=== PATIENT | female | born 1955 | race Caucasian/White ===

== ENCOUNTER → 2023-11-06 13:55 | Outpatient (REF) | payer MEDICARE, OTHER, SELFPAY | LOC: RAD 13:55 | PROVIDERS: ATTENDING PHYSICIAN Student in an Organized Health Care Education/Training Program | DX: Z13.820 Encounter for screening for osteoporosis (principal); M81.0 Age-related osteoporosis without current pathological fracture | CPT/HCPCS: 77080 ==

== ENCOUNTER → 2024-07-15 18:48 | Outpatient (REF) | payer MEDICARE, OTHER, SELFPAY | LOC: WDC 18:48 | PROVIDERS: ATTENDING PHYSICIAN Student in an Organized Health Care Education/Training Program | DX: Z12.31 Encounter for screening mammogram for malignant neoplasm of breast (principal) | CPT/HCPCS: 77063; 77067 ==

== ENCOUNTER → 2024-09-06 06:26 | Day surgery (SDC) | payer MEDICARE, OTHER, SELFPAY | LOC: GI 06:26 | PROVIDERS: ATTENDING PHYSICIAN Student in an Organized Health Care Education/Training Program | PROC: 0DJD8ZZ Inspection of Lower Intestinal Tract, Via Natural or Artificial Opening Endoscopic (ICD-10-PCS; 2024-09-06) | DX: Z12.11 Encounter for screening for malignant neoplasm of colon (principal); Z86.0101 Personal history of adenomatous and serrated colon polyps; K64.0 First degree hemorrhoids | CPT/HCPCS: G0105 ==

== ENCOUNTER → 2024-11-18 07:41 | Outpatient (REF) | payer MEDICARE, OTHER, SELFPAY ==
[2024-11-18 09:41] LABS: % Basophils 0.9 % (0-2); % Immature Granulocytes 0.2 % (0-0.5); % Monocytes 10.6 % (1.7-9.3); % Neutrophils 38.3 % (42.2-75.2); Absolute Basophils 0.1 10^3/uL (0-0.2); Absolute Eosinophils 0.2 10^3/uL (0-0.7); Absolute Lymphocytes 2.7 10^3/uL (1.2-3.4); Absolute Monocytes 0.6 10^3/uL (0.1-0.6); Absolute Neutrophils 2.2 10^3/uL (1.4-6.5); Hematocrit 42.9 % (37.0-47.0); Hemoglobin 13.6 g/dL (12.0-16.0); Mean Corp Hgb Conc. 31.7 g/dL (33.0-37.0); Mean Corpuscular Hgb 30.7 pg (27.0-31.0); Mean Corpuscular Volume 96.8 fL (81.0-99.0); Mean Platelet Volume 11.1 fL (7.4-10.4); Nucleated Red Blood Cells % 0 %; Platelet Count 203 10^3/uL (130-400); Red Blood Cell Count 4.43 10^6/uL (4.20-5.40); Red Cell Dist. Width 11.8 % (11.5-14.5); White Blood Cell Count 5.8 10^3/uL (4.8-10.8)
[2024-11-18 10:02] LABS: Blood Urea Nitrogen 15 mg/dl (7-17); Calcium 9.1 mg/dl (8.4-10.2); Carbon Dioxide 34 mmol/L (22-30); Chloride 104 mmol/L (98-107); Glucose 100 mg/dl (70-99); Potassium 5.2 mmol/L (3.5-5.1); Sodium 138 mmol/L (135-145); eGFR > 60.00
== END ==
LOC: REG 07:41
PROVIDERS: ATTENDING PHYSICIAN Orthopaedic Surgery
DX: Z01.818 Encounter for other preprocedural examination (principal)
CPT/HCPCS: 36415; 80048; 85025; 93005

== ENCOUNTER 2024-12-31 18:38 | Inpatient (IN) | payer MEDICARE, OTHER, SELFPAY ==
[2024-12-31] VITALS (7 sets, daily range): BP systolic 115–155; BP diastolic 48–69
[2024-12-31 14:05] LABS: % Basophils 0.5 % (0-2); % Eosinophils 0.2 % (0-6); % Immature Granulocytes 0.7 % (0-0.5); % Lymphocytes 16.3 % (20.5-51.1); % Monocytes 6.1 % (1.7-9.3); % Neutrophils 76.2 % (42.2-75.2); Absolute Basophils 0.1 10^3/uL (0-0.2); Absolute Immature Granulocytes 0.1 10^3/uL (0-0.05); Absolute Lymphocytes 2.5 10^3/uL (1.2-3.4); Absolute Monocytes 0.9 10^3/uL (0.1-0.6); Absolute Neutrophils 11.4 10^3/uL (1.4-6.5); Hematocrit 26.5 % (37.0-47.0); Hemoglobin 8.4 g/dL (12.0-16.0); Mean Corp Hgb Conc. 31.7 g/dL (33.0-37.0); Mean Corpuscular Hgb 30.2 pg (27.0-31.0); Mean Corpuscular Volume 95.3 fL (81.0-99.0); Nucleated Red Blood Cells % 0 %; Platelet Count 337 10^3/uL (130-400); Red Blood Cell Count 2.78 10^6/uL (4.20-5.40); Red Cell Dist. Width 11.9 % (11.5-14.5)
[2024-12-31 14:40] LABS: ALT (SGPT) 21 U/L (0-35); AST (SGOT) 22 U/L (14-36); Albumin 3.3 g/dl (3.5-5.0); Alkaline Phosphatase 67 U/L (38-126); Blood Urea Nitrogen 49 mg/dl (7-17); Calcium 9.5 mg/dl (8.4-10.2); Carbon Dioxide 29 mmol/L (22-30); Chloride 103 mmol/L (98-107); Glucose 119 mg/dl (70-99); Lipase 146 U/L (23-300); Potassium 4.6 mmol/L (3.5-5.1); Sodium 137 mmol/L (135-145); Total Bilirubin 0.5 mg/dl (0.2-1.3); Total Protein 5.8 g/dl (6.3-8.2); eGFR > 60.00
--- NOTE | 2024-12-31 17:40 | ED.GENMED ---
History of Present Illness
General
Chief Complaint: Abdominal Pain
Source: patient
Exam Limitations: none
Time Seen by Provider: 12/31/24 17:15
Nursing documentation reviewed up to this point in time: agreed with
History of Present Illness
History of Present Illness:
69 yo female with h/o HTN, HLD, Hypothyroid, R knee replacement Dr. De Jesus 12/15/24, cyndie out 12/28, had some swelling in the leg so put on Prednisone with improvement. Was taking Celebrex 2 caps daily, Ibuprofen 400 mg TID and Tylenol for pain.
Noted black stools and stomach upset 10 days ago. Got worse and felt lightheaded twice today so came here for eval.
Denies CP, SOB.
Past History
Past History
ED Past Medical History: HTN, Hypercholesterolemia and Hypothyroidism
ED Past Surgical History: Orthopedic (R knee replaced 12/15/24), Tonsilectomy and Other (Thyroidectomy)
Social History
Tobacco: Non-smoker
Alcohol: Occasional
Personal: Single
Living: alone
Employment: Retired
Review of Systems
Review of Systems
Allergies reviewed?: Yes
All Other Systems: ROS reviewed and negative except as documented in HPI and ROS
Constitutional: Denies fever or chills
Cardiac: Denies chest pain, diaphoresis, palpitations or syncope
ABD/GI: Reports abdominal pain and black stools; Denies nausea, vomiting, diarrhea or anorexia
: Denies dysuria, frequency or difficulty voiding
Musculoskeletal: Reports other (Right knee healing well.)
Skin: Reports other (R knee incision healing well, steri strips in place)
Neurological: Reports other (felt lightheaded twice earlier today); Denies dizzy, headache, weakness or numbness
Phy Exam
Physical Exam
Physical Exam:
GENERAL: No acute distress. A&Ox3.
CONSTITUTIONAL: Afebrile.
EYES: clear, conjunctivae normal
ENMT: moist mucus membranes, Pharynx nl
RESPIRATORY: Regular respirations, nonlabored, lungs clear.
CARDIOVASCULAR: Regular rate and rhythm, no murmurs, no rubs.
GI: Soft, mild epigastric tenderness, normal BS
Rectal: no stool in rectal vault, gloved finger mucus heme positive
MUSCULOSKELETAL: Moves with ease. Well perfused.
SKIN: Warm, dry, pink
PSYCH: Normal mood and affect. Well kept, interactive and appropriate
NEUROLOGIC: Awake, alert and oriented. No focal neurological deficits
Course
Orders/Labs/Results
Orders:
Orders
12/31/24 13:56
Complete Blood Count/With Diff Urgent
Comprehensive Metabolic Panel Urgent
Lipase Urgent
12/31/24 17:57
IV Insert/Care/Rem.- Treatment PRN
Pantoprazole [Protonix IV] 80 mg IV NOW STA
12/31/24 18:07
GASTROINTESTINAL CONSULT Routine
Consulting Provider: Sunshine Malik
Was physician already notified: Yes
Reason for consult: GIB
12/31/24 18:08
Type And Crossmatch [Type+Screen] Urgent
PTT Urgent
Prothrombin Time Urgent
12/31/24 18:15
Pantoprazole 80 mg/100 ml Nss [Protonix] 80 mg in 100 ml IV Q10H
12/31/24 18:25
Admit/Transfer Patient As Directed
Co-Sign Provider:
Level of Care: Inpatient admission
Assign to:: Telemetry
Physician / Group: Hospitalist
Diagnosis: GIB
Reason for Telemetry: Syncope
Date to Stop Telemetry: 01/02/25
Time to Stop Telemetry: 11:00
Reason for Hospitalization: GIB
Expected length of stay greater than two midnights?: Yes
ELOS- Estimated Length of Stay in days: 2
I certify the patient meets the requirements for IP care: Yes
12/31/24 18:27
Code Status As Directed
Resuscitation Status: Full Code
PRN Pain Medication Management As Directed
May give lesser potent ordered pain med per pt: Yes
preference::
Protocol:: Medication orders for pain may be administered in a
manner that supports deferring to patient preference
when the pt is:
- Requesting an ordered lesser potent pain medication.
Least to most potent pain medications are defined
as: acetaminophen < NSAID < tramadol < opioids
(morphine, oxycodone, hydromorphone).
- Requesting a lesser dose of the same medication IF
ORDERED.
- Requesting a less intrusive route of administration
if both routes are prescribed by the provider (PO <
IV).
12/31/24 18:43
ABO2 Urgent
BBK Wristband Number:
Associate notified that ABO2 has been ordered: [id number]
Date: 12/31/24
Time: 18:32
S[employer] ID: [id number]
COVID-19 Antigen Stat
Source: Nasal Swab
H&H Q8H
Influenza A+B Rapid Molecular Stat
ALYSSIA Source: Nasal Swab
Specimen Description:
01/01/25 02:15
H&H Q8H
01/01/25 10:15
H&H Q8H
01/02/25 11:00
DC Protocol for Telemetry ONCE
Abnormal Lab Results
12/31/24 12/31/24
13:56 18:08
WBC 15.0 H 10^3/uL
(4.8-10.8)
RBC 2.78 L 10^6/uL
(4.20-5.40)
Hgb 8.4 L g/dL
(12.0-16.0)
Hct 26.5 L %
(37.0-47.0)
MCHC 31.7 L g/dL
(33.0-37.0)
Abs Immat Gran (auto) 0.1 H 10^3/uL
(0-0.05)
Absolute Neuts (auto) 11.4 H 10^3/uL
(1.4-6.5)
Absolute Monos (auto) 0.9 H 10^3/uL
(0.1-0.6)
Immature Gran % 0.7 H %
(0-0.5)
Neutrophils % 76.2 H %
(42.2-75.2)
Lymphocytes % 16.3 L %
(20.5-51.1)
PT 15.4 H Sec
(11.4-14.6)
APTT 23.0 L Sec
(23.4-35.0)
BUN 49 H mg/dl
(7-17)
Glucose 119 H mg/dl
(70-99)
Total Protein 5.8 L g/dl
(6.3-8.2)
Albumin 3.3 L g/dl
(3.5-5.0)
12/31/24 13:56
12/31/24 13:56
Vital Signs
Initial and Last Documented VS:
Initial Vital Signs
Temp Pulse Resp BP Pulse Ox
98.4 F 81 16 117/56 98
12/31/24 13:44 12/31/24 13:44 12/31/24 13:44 12/31/24 13:44 12/31/24 13:44
Last Documented Vital Signs
Temp Pulse Resp BP Pulse Ox
98.4 F 78 19 152/62 96
12/31/24 13:44 12/31/24 19:30 12/31/24 19:30 12/31/24 19:00 12/31/24 19:30
MDM/Problems Addressed
Differential Diagnosis Includes:
GI bleed from NSAIDs, PUD
MDM/Problems Addressed:
69 yo female with h/o HTN, HLD, Hypothyroid, R knee replacement Dr. De Jesus 12/15/24, cyndie out 12/28, had some swelling in the leg so put on Prednisone with improvement. Was taking Celebrex 2 caps daily, Ibuprofen 400 mg TID and Tylenol for pain.
Noted black stools and stomach upset 10 days ago. Got worse and felt lightheaded twice today so came here for eval.
Denies CP, SOB.
5:00 p.m.
CBC Hgb 8.4 (was 13.6 11/18/24)
CMP: BUN 49
Lipase normal
5:50 p.m.
Blood consent signed and with chart,
Pt stable.
Hospitalist notified of admission.
*Critical Care Note
Total Time (30-74mins, 75-104mins- exclusive of procedures): Not Applicable
ED Attending Note
-
Portions of this chart may have been created with voice recognition software.� Occasional wrong word or��sound alike� substitutions may have occurred due to the inherent limitations of voice recognition software.
Discharge Plan
Departure
Patient Disposition: Admit
Date of Disposition: 12/31/24
Time of Disposition: 17:56
Admit to: Med/Surg
Presentation/result/management discussed w/ accepting MD/DO: Hospitalist
Condition: Fair
Discharge Problem:
Acute GI bleeding
Interventions
Interventions:
*Risk Screen - Suicide Last Done: 12/31/24 13:44
*General Assessment Last Done: 12/31/24 18:42
*Neglect/Abuse Screening Last Done: 12/31/24 13:44
*ED- Fall Risk Assessment Last Done: 12/31/24 18:42
*ED COVID-19 Vaccine History Last Done: 12/31/24 18:42
BY-Vyvinj-Yrnzzvyaks Assessment Last Done: 12/31/24 18:42
[2024-12-31 18:27] LABS: INR 1.19; PT 15.4 Sec (11.4-14.6)
--- NOTE | 2024-12-31 18:32 | HPS.HSE ---
Family Physician
-
Family Physician: Inez Levine PA-C
Chief Complaint
-
black stool
History of Present Illness
69yo F with PMHx of DJD, HLD, reportedly hypothyroidism, recent R knee replacement on 01/15/25 came with 1 week of dark stools and epigastic pain. On the day of admission almost passed out that prompted her to come to ED. She also had signifcant
maroon colored stool on the day of admisison. Was taking Advil, celebrex and Asa 325mg for DVT ppx over past eweeks, as well as Rx prednisone few days ago for her postOP swelling
Leg swelling and bruising gradually resolving after her surgery and did not get worse for past week.
Found FOBT positive dark stool in ED and Anemia, hemodynamically stable without hypotension and tachycardia
Medical History
Past Medical History
Past Medical History: Reports Other
Additional Past Medical History:
See HPI
Past Surgical History: Reports Other
Additional Past Surgical History:
See HPI
Social History
Tobacco: Non-smoker
Alcohol: Occasional
Drug: None
Family History
Family History: Other (strokes)
Allergies / Home Medications
Allergies reflects when Allergies were last updated in [employer].
Home Medications with original date entered in [employer]
Allergy/Medication List:
Allergies
Allergy/AdvReac Type Severity Reaction Status Date / Time
codeine Allergy Unknown Verified 12/31/24 13:47
Penicillins Allergy Unknown Verified 12/31/24 13:47
Home Medications - Not updated at the time of admisison
tramadol 50 mg tablet 50 mg PO Q6HPRN PRN Pain #15 tabs 09/10/15
Review of Systems
-
History Source: Patient
A 12 point ROS was completed and negative except as noted: Yes
Physical Exam
Vital Signs
Vital Signs
Temp Pulse Resp BP Pulse Ox
98.4 F 81 16 117/56 98
12/31/24 13:44 12/31/24 13:44 12/31/24 13:44 12/31/24 13:44 12/31/24 13:44
Physical Exam
General: Well Developed, Well Nourished and No Apparent Distress
HEENT: NormoCephalic, Anicteric and Moist mucous membranes
Respiratory: Clear; No Wheezes or Rhonchi
Cardiac: Regular Rhythm; No Tachycardia or Murmur
Rectal: Black and Hem Positive
Genito-urinary: No costovertebral tender
Musculoskeletal: No Clubbing, No Cyanosis and Other (RLE with residular bruising extending over medial leg to the groin, well healing scar)
Skin: Warm; No Rash or Jaundice
Neuro: Awake, Alert, Oriented and AO x 3
Psych: Calm
Laboratory Results
-
12/31/24 13:56
Laboratory Results
PT 15.4 Sec (11.4-14.6) H 12/31/24 18:08
INR 1.19 12/31/24 18:08
APTT 23.0 Sec (23.4-35.0) L 12/31/24 18:08
Total Bilirubin 0.5 mg/dl (0.2-1.3) 12/31/24 13:56
AST 22 U/L (14-36) 12/31/24 13:56
ALT 21 U/L (0-35) 12/31/24 13:56
Alkaline Phosphatase 67 U/L (38-126) 12/31/24 13:56
Lipase 146 U/L (23-300) 12/31/24 13:56
Data Reviewed
-
Lab Data: Labs Reviewed by me
Impression/Plan
-
A/P:
#Acute blood loss anemia 2/2 GIB
PPI drip
two large bore IV, follow serial H&H, patient signed blood transfusion consent in ED
Transfuse if further drop
NPO
GI consult
hold antiplatelets, anticoagulation and NSAIDs
follow orthostatics
if significant symptoms appear - CTA abd/pelvis
#Hypothyroidism
#HLD
#EssentiaL HTN
cont home meds
#leukocytosis
possibly stress induced
check UA, chest XR, covid-19, influenza and follow CBC
DVT ppx SCDs
Full code - discussed in details with patient
I have spent at least 78min reviewing chart, test results, communication with consukltants and providing direct patient care
[2024-12-31] MEDS: PROTONIX IV 80 MG IV (18:53)
[2024-12-31] MEDS: PROTONIX 100 IV (18:53)
[2024-12-31 18:57] LABS: Hematocrit 23.6 % (37.0-47.0)
[2024-12-31 19:19] LABS: COVID-19 Antigen Negative (Negative)
--- NOTE | 2024-12-31 22:00 | PTCARENOTE ---
Patient arrived from ED, with IV protonix running at 8 mg/hr. VSS. NSR with PVCs, on telemetry, box # 34. Patient denies abdominal pain. x 1 assist with a straight cane. WBAT to RLE post right total knee replacement, 12/15/24. Right knee incision CDI
with steri strips. Trace edema noted upon assessment. IV team called to place a second IV per orders. Skin check completed and documented. UA completed. Home medications sent to pharmacy, including PO Lorazepam. Patient oriented to room. Bed in
lowest position. Call orr and personal belongings within reach.
[2024-12-31] MEDS: D5/0.45%NACL 1000 IV (22:33)
[2025-01-01] VITALS (13 sets, daily range): BP systolic 116–143; BP diastolic 48–80; BMI 30.5
[2025-01-01 01:43] LABS: Urine Albumin Negative (Neg - Trace); Urine Bilirubin Negative (Negative); Urine Character Clear (Clear); Urine Color Yellow; Urine Glucose Negative (Negative); Urine Ketone Negative (Negative); Urine Leukocyte Negative (Negative); Urine Nitrite Negative (Negative); Urine Occult Blood Negative (Negative); Urine Specific Gravity 1.015 (<1.030); Urine Urobilinogen Negative (Neg - 1+)
[2025-01-01 02:21] LABS: Hematocrit 21.8 % (37.0-47.0); Hemoglobin 7.1 g/dL (12.0-16.0)
[2025-01-01 04:41] LABS: Iron 105 ug/dl (37-170)
[2025-01-01 04:50] LABS: Percent Saturation 31 % (20-50); Total Iron Binding Capacity 336 ug/dl (265-497)
[2025-01-01 05:17] LABS: Ferritin 84.5 ng/ml (11.1-264.0)
[2025-01-01 05:31] LABS: Vitamin B12 470 pg/ml (239-931)
--- NOTE | 2025-01-01 05:48 | PTCARENOTE ---
Hgb 7.1. Provider notified. x 1 unit PRBC ordered. Administration of PRBC started.
[2025-01-01] MEDS: PROTONIX 100 IV ×2 (06:03→16:39)
--- NOTE | 2025-01-01 06:20 | PTCARENOTE ---
IV fluids on hold due to lack of access.
--- NOTE | 2025-01-01 08:28 | CON.GI ---
Consultation
-
Date/Time Consultation Requested: 12/31/24 1800
Date/Time Consultation Performed: 01/01/25 0800
Requesting Provider: Dr. Napoles
Performing Provider: Dr. Malik / Poornima Tyler PA-C
Reason for Consultation: black stools, lightheaded, abdominal pain
Medical History
Chief Complaint / HPI
Chief Complaint: black stools, abdominal pain
History of Present Illness:
This is a 69 year old female with a past medical history of hyperlipidemia, hypothyroidism, arthritis and colon polyps who underwent recent R knee replacement on 12/15/24 who presented to the ER with complaints of black stools for over a week, with
epigastric pain and lightheadedness. She admitted to heavy NSAID use post-op, taking Celebrex and Advil in addition to multiple course of prednisone as she had post-op swelling of her knee. Hemoglobin upon arrival in the ED was 8.4 with BUN of 49.
Hgb did drop (down to 7.1 this morning and she received 1 unit PRBCs). Patient has remained hemodynamically stable. She has never had an endoscopy. She recently had a colonoscopy with Dr. Bruno and has a history of colon polyps as well as a family
history of colon cancer (father).
Past Medical History
Past Medical History: Other (hyperlipidemia, hypothyroidism, arthritis and colon polyps)
Past Surgical History: Other (R knee replacement on 12/15/24, tonsillectomy, thyroidectomy)
Social History
Tobacco: Non-Smoker
Alcohol: Daily (1 glass of wine/day)
Drug: Marijuana (occasional)
Family History
Family History: Other (father had colon cancer)
Allergies / Home Medications
Allergy/AdvReac Type Severity Reaction Status Date / Time
codeine Allergy Unknown Verified 12/31/24 13:47
Penicillins Allergy Unknown Verified 12/31/24 13:47
�Medication �Instructions �Recorded
aspirin 325 mg tablet 325 mg PO DAILY 12/31/24
ibuprofen 200 mg tablet (Advil) 400 mg PO Q6HPRN PRN mild pain 12/31/24
levothyroxine 150 mcg tablet 150 mcg PO DAILY 12/31/24
lisinopril 5 mg tablet 5 mg PO DAILY 12/31/24
lorazepam 0.5 mg tablet 0.25 mg PO HSPRN PRN sleep/anxiety 12/31/24
methylprednisolone 4 mg tablets in 0 mg PO PER PKG DIR 12/31/24
a dose pack
metoprolol succinate 100 mg 200 mg PO HS 12/31/24
tablet,extended release 24 hr
rosuvastatin 5 mg tablet 5 mg PO HS 12/31/24
Review of Systems
-
History Source: Patient
All other systems: A 12 pt ROS was Negative except as stated above in HPI
Vital Signs
Temp Pulse Resp BP Pulse Ox
98.4 F 70 15 125/51 100
01/01/25 07:49 01/01/25 07:49 01/01/25 07:49 01/01/25 07:49 01/01/25 07:49
Physical Exam
Exam
General: Well Developed, Well Nourished and No Apparent Distress
Respiratory: Clear
Cardiac: Regular Rhythm
GI: Soft, Non Tender, Non Distended and Normal Bowel Sounds
Rectal: Other (black, heme positive per ER exam)
Skin: Warm
Neuro: Awake, Alert and Oriented
Psych: Calm
Results
WBC 15.0 10^3/uL (4.8-10.8) H 12/31/24 13:56
Hgb 7.1 g/dL (12.0-16.0) L 01/01/25 02:13
Hct 21.8 % (37.0-47.0) L 01/01/25 02:13
MCV 95.3 fL (81.0-99.0) 12/31/24 13:56
Plt Count 337 10^3/uL (130-400) 12/31/24 13:56
Absolute Neuts (auto) 11.4 10^3/uL (1.4-6.5) H 12/31/24 13:56
PT 15.4 Sec (11.4-14.6) H 12/31/24 18:08
INR 1.19 12/31/24 18:08
APTT 23.0 Sec (23.4-35.0) L 12/31/24 18:08
Sodium 137 mmol/L (135-145) 12/31/24 13:56
Potassium 4.6 mmol/L (3.5-5.1) 12/31/24 13:56
Chloride 103 mmol/L (98-107) 12/31/24 13:56
Carbon Dioxide 29 mmol/L (22-30) 12/31/24 13:56
BUN 49 mg/dl (7-17) H 12/31/24 13:56
Creatinine 0.9 mg/dL (0.6-1.0) 12/31/24 13:56
Calcium 9.5 mg/dl (8.4-10.2) 12/31/24 13:56
Total Bilirubin 0.5 mg/dl (0.2-1.3) 12/31/24 13:56
AST 22 U/L (14-36) 12/31/24 13:56
ALT 21 U/L (0-35) 12/31/24 13:56
Alkaline Phosphatase 67 U/L (38-126) 12/31/24 13:56
Lipase 146 U/L (23-300) 12/31/24 13:56
Diagnostic Image Results:
Prior GI Procedures:
EGD: never
Colonoscopy: 09/06/2024 (Dr Bruno): internal hemorrhoids, otherwise normal
Assessment / Plan
-
69 year old female who underwent recent R knee replacement on 12/15/24 who presented to the ER with complaints of black stools for over a week, with epigastric pain and lightheadedness. She admitted to heavy NSAID use post-op, taking Celebrex and
Advil in addition to multiple course of prednisone as she had post-op swelling of her knee. Hemoglobin upon arrival in the ED was 8.4 with BUN of 49. Hgb did drop (down to 7.1 this morning and she received 1 unit PRBCs). Patient has remained
hemodynamically stable.
IMPRESSION / PLAN:
Melena, acute blood loss anemia
- etiology likely secondary to NSAID-induced ulcer/gastritis
- continue PPI IV
- Hgb dropped from 8.4 on admission to 7.1, s/p transfusion 1 unit PRBCs
- continue to trend Hgb
- plan for endoscopy (to discuss timing with Dr. Malik)
-
-
Thank you for consultation and allowing me to participate in the patient's care. Please call the inventory control assistant GI physician during the after hours with any questions or concerns.
--- NOTE | 2025-01-01 09:15 | W.PN.HOSP.TC ---
Today's Communication/Plan
-
pending EGD
transfuse and follow HGB
cont PPI drip
Assessment / Plan
Assessment / Plan
69yo F with PMHx of DJD, HLD, reportedly hypothyroidism, recent R knee replacement on 01/15/25 came with 1 week of dark stools and epigastic pain. On the day of admission almost passed out that prompted her to come to ED. Managed for GIB. s/p 1 unit
PRBC on 01/01/25
A/P:
#Acute blood loss anemia 2/2 GIB
PPI drip
two large bore IV, follow serial H&H, patient signed blood transfusion consent in ED
Transfuse if further drop
NPO
GI consult
hold antiplatelets, anticoagulation and NSAIDs
follow orthostatics
if significant symptoms appear - CTA abd/pelvis
#Hypothyroidism
#HLD
#EssentiaL HTN
cont home meds
#leukocytosis
possibly stress induced vs steroids (recently prescribed)
check UA, chest XR, covid-19, influenza and follow CBC
DVT ppx SCDs
Full code - discussed in details with patient
I have spent at least 78min reviewing chart, test results, communication with consukltants and providing direct patient care
Anticipated Discharge: > 48 hours
Subjective/Interval History
-
Date of Service: January 01, 2025
Objective Data
-
Labs:
Laboratory Results
01/01/25 01/01/25 01/01/25
02:13 07:22 10:15
WBC Pending
Hgb 7.1 L Pending Pending
Hct 21.8 L Pending Pending
Plt Count Pending
Vital Signs:
Vital Signs
Temp Pulse Resp BP Pulse Ox
98.5 F 75 16 128/67 97
01/01/25 09:02 01/01/25 09:02 01/01/25 09:02 01/01/25 09:02 01/01/25 09:02
I&O
12/31/24 01/01/25 01/02/25
06:59 06:59 06:59
Intake Total 550 / 800 250 / 250
Output Total 500 / 500
Balance 50 / 300 250 / 250
Review of Systems
-
History Source: Patient
All other systems: Reviewed and negative
Physical Exam
-
General: No Apparent Distress
HEENT: Normocephalic
Respiratory: Clear to Auscultation
Cardiac: Regular Rhythm
GI: Soft, Nontender and Nondistended
Musculoskeletal: No Clubbing, No Cyanosis and No Edema
Neuro: Awake, Alert, Oriented and AO x 3
Psych: Calm
[2025-01-01 09:48] LABS: Hematocrit 23.7 % (37.0-47.0); Hemoglobin 7.8 g/dL (12.0-16.0); Mean Corp Hgb Conc. 32.9 g/dL (33.0-37.0); Mean Corpuscular Hgb 30.6 pg (27.0-31.0); Mean Corpuscular Volume 92.9 fL (81.0-99.0); Mean Platelet Volume 10.5 fL (7.4-10.4); Platelet Count 260 10^3/uL (130-400); Red Blood Cell Count 2.55 10^6/uL (4.20-5.40); Red Cell Dist. Width 13.4 % (11.5-14.5); White Blood Cell Count 11.6 10^3/uL (4.8-10.8)
[2025-01-01 13:06] LABS: Hematocrit 25.3 % (37.0-47.0); Hemoglobin 8.6 g/dL (12.0-16.0)
--- NOTE | 2025-01-01 13:36 | CM ---
CM reviewed chart, patient seen bedside with family, initial assessment completed. Patient resides independently in a two story home, three steps to enter through back, five steps through the front, bedroom on second floor, fifteen steps. Patient
reports she recently had a knee replacement and is using a cane, currently in outpatient PT, has had [facility] in past, denies SNF. Patient confirms PCP Inez Levine, pharmacy [facility], confirms prescription coverage through
[facility] [employer]. Plan for EGD. CM will continue to follow for all discharge planning needs.
Plan; home with continuance of outpatient PT likely.
[2025-01-01 18:34] LABS: Hematocrit 27.5 % (37.0-47.0); Hemoglobin 9.2 g/dL (12.0-16.0)
[2025-01-01] MEDS: D5/0.45%NACL 1000 IV (20:24)
[2025-01-01] MEDS: ATIVAN 0.25 MG PO (22:15)
[2025-01-02] VITALS (8 sets, daily range): BP systolic 104–148; BP diastolic 53–88; PULSE 90–136; BMI 30.5
[2025-01-02] MEDS: PROTONIX 100 IV ×3 (00:38→21:07)
[2025-01-02] MEDS: D5/0.45%NACL IV (01:28)
--- NOTE | 2025-01-02 05:24 | PTCARENOTE ---
IV fluids . Per provider, okay not to renew order and to finish out current bag.
[2025-01-02 06:56] LABS: % Basophils 0.6 % (0-2); % Eosinophils 1.8 % (0-6); % Immature Granulocytes 0.9 % (0-0.5); % Lymphocytes 34.1 % (20.5-51.1); % Monocytes 7.2 % (1.7-9.3); % Neutrophils 55.4 % (42.2-75.2); Absolute Basophils 0.1 10^3/uL (0-0.2); Absolute Eosinophils 0.2 10^3/uL (0-0.7); Absolute Immature Granulocytes 0.1 10^3/uL (0-0.05); Absolute Lymphocytes 3.8 10^3/uL (1.2-3.4); Absolute Monocytes 0.8 10^3/uL (0.1-0.6); Absolute Neutrophils 6.2 10^3/uL (1.4-6.5); Hematocrit 25.1 % (37.0-47.0); Hemoglobin 8.3 g/dL (12.0-16.0); Mean Corp Hgb Conc. 33.1 g/dL (33.0-37.0); Mean Corpuscular Hgb 30.6 pg (27.0-31.0); Mean Corpuscular Volume 92.6 fL (81.0-99.0); Mean Platelet Volume 10.1 fL (7.4-10.4); Nucleated Red Blood Cells % 0.2 %; Platelet Count 242 10^3/uL (130-400); Red Blood Cell Count 2.71 10^6/uL (4.20-5.40); Red Cell Dist. Width 14.5 % (11.5-14.5); White Blood Cell Count 11.2 10^3/uL (4.8-10.8)
[2025-01-02 07:31] LABS: ALT (SGPT) 17 U/L (0-35); AST (SGOT) 20 U/L (14-36); Albumin 2.8 g/dl (3.5-5.0); Alkaline Phosphatase 56 U/L (38-126); Blood Urea Nitrogen 27 mg/dl (7-17); Calcium 8.5 mg/dl (8.4-10.2); Carbon Dioxide 27 mmol/L (22-30); Chloride 105 mmol/L (98-107); Estimated Creatinine Clearance 72 ml/min; Glucose 107 mg/dl (70-99); Potassium 3.7 mmol/L (3.5-5.1); Sodium 139 mmol/L (135-145); Total Bilirubin 0.6 mg/dl (0.2-1.3); Total Protein 5.1 g/dl (6.3-8.2); eGFR > 60.00
--- NOTE | 2025-01-02 10:15 | PTCARENOTE ---
Dr Napoles aware of pt's heart rate going up to 130-140s when oob. orthostatic vitals were checked as pt complained of feeling dizzy when getting oob. He ordered a unit of PRBC to be given. He also changed her IVF to D5LR at 80ml/hr. Protonix drip
is to continue.
[2025-01-02] MEDS: D5LR 1000 IV (10:34)
--- NOTE | 2025-01-02 10:53 | W.PN.GI.CBS2 ---
Today's Communication / Plan
-
Repeat labs pending. PPI gtt. NPO PMN for EGD tomorrow
Assessment / Plan
-
Kortney Lauren is a 69-year-old female with past medical history of degenerative disc disease, hyperlipidemia, hypothyroidism, recent right knee replacement on 01/15/2025 admitted with epigastric pain and black tarry stool x 1 week.� She was placed on
aspirin 325 mg daily for DVT prophylaxis following her orthopedic surgery as well as taking Advil and Celebrex.� She called her orthopedic surgeon about a week ago to report worsening abdominal pain, recommended that she stop the aspirin but
continue her nonsteroidals.
Hgb 8.4 (down from 13.6 on 10/2024) --> 8 --> 7.1. She received 2 units of PRBC in total. Hemoglobin yesterday was 9.2, repeat today 8.3. She has not had any bowel movements overnight, which is reassuring. Repeat labs pending. Her BUN is also
improving. She remains hemodynamically stable.
#Melena, epigastric pain in setting of high dose ASA and NSAIDs, highly suspicious for PUD
-2 large bore peripheral gauge IVs
-active T&C
-H&H q12 hours
-transfuse for Hgb <7
-c/w PPI gtt
-Hgb 9.2 --> 8.3 today, repeat labs pending; BUN 49 --> 27
-okay for clears, NPO PMN for EGD tomorrow
Subjective
Subjective
Date of Service: January 02, 2025
Patient seen in follow-up, no overnight events. Early Am Hgb 8.3 down from 9.2. BUN 49 -->27. She received a total of 2 units of PRBC since arrival.
Objective
Data Reviewed
Laboratory Data:
Laboratory Results
01/02/25 06:41
Laboratory Results
PT 15.4 Sec (11.4-14.6) H 12/31/24 18:08
INR 1.19 12/31/24 18:08
APTT 23.0 Sec (23.4-35.0) L 12/31/24 18:08
Total Bilirubin 0.6 mg/dl (0.2-1.3) 01/02/25 06:41
AST 20 U/L (14-36) 01/02/25 06:41
ALT 17 U/L (0-35) 01/02/25 06:41
Alkaline Phosphatase 56 U/L (38-126) 01/02/25 06:41
Lipase 146 U/L (23-300) 12/31/24 13:56
Vital Signs and I&O:
Vital Signs
Temp Pulse Resp BP Pulse Ox
98.5 F 82 15 137/57 99
01/02/25 07:48 01/02/25 07:48 01/02/25 07:48 01/02/25 07:48 01/02/25 07:48
I&O
01/01/25 01/02/25 01/03/25
06:59 06:59 06:59
Intake Total 550 / 800 980 / 980
Output Total 500 / 500
Balance 50 / 300 980 / 980
Physical Exam
Physical Exam
HEENT: Anicteric and Moist mucous membranes
GI: Soft, Non Distended, Non Tender and Normal Bowel Sounds
--- NOTE | 2025-01-02 11:21 | W.PN.HOSP.TC ---
Today's Communication/Plan
-
developed dissiness and tachycardia when ambulating today - order one more unti of PRBC
cont PPI, H&H followup and hold BP meds
Assessment / Plan
Assessment / Plan
69yo F with PMHx of DJD, HLD, reportedly hypothyroidism, recent R knee replacement on 01/15/25 came with 1 week of dark stools and epigastic pain. On the day of admission almost passed out that prompted her to come to ED. Managed for GIB. s/p 1 unit
PRBC on 01/01/25
A/P:
#Acute blood loss anemia 2/2 GIB
PPI drip
two large bore IV, follow serial H&H, patient signed blood transfusion consent in ED
Transfuse if further drop
NPO
GI consult
hold antiplatelets, anticoagulation and NSAIDs
follow orthostatics
if significant symptoms appear - CTA abd/pelvis
#Hypothyroidism
#HLD
#EssentiaL HTN
cont home meds
#leukocytosis
possibly stress induced vs steroids (recently prescribed)
check UA, chest XR, covid-19, influenza and follow CBC
DVT ppx SCDs
Full code - discussed in details with patient
I have spent at least 78min reviewing chart, test results, communication with consukltants and providing direct patient care
Anticipated Discharge: 24 - 48 hours
Subjective/Interval History
-
Date of Service: January 02, 2025
Objective Data
-
Labs:
Laboratory Results
01/02/25 01/02/25
06:41 17:00
WBC 11.2 H
Hgb 8.3 L Pending
Hct 25.1 L Pending
Plt Count 242
Sodium 139
Potassium 3.7
Chloride 105
Carbon Dioxide 27
BUN 27 H
Creatinine 0.8
Glucose 107 H
Calcium 8.5
Total Bilirubin 0.6
AST 20
ALT 17
Alkaline Phosphatase 56
Vital Signs:
Vital Signs
Temp Pulse Resp BP Pulse Ox
98.5 F 82 15 137/57 99
01/02/25 07:48 01/02/25 07:48 01/02/25 07:48 01/02/25 07:48 01/02/25 07:48
I&O
01/01/25 01/02/25 01/03/25
06:59 06:59 06:59
Intake Total 550 / 800 980 / 980
Output Total 500 / 500
Balance 50 / 300 980 / 980
Review of Systems
-
History Source: Patient
All other systems: Reviewed and negative
Neuro: Reports Dizzy
[2025-01-02 17:03] LABS: Hematocrit 26.4 % (37.0-47.0); Hemoglobin 9.1 g/dL (12.0-16.0)
--- NOTE | 2025-01-02 17:16 | PTCARENOTE ---
Dr Napoles aware of 5pm hemoglobin of 9.1. ordered to hold tonight's dose of toprol
[2025-01-02] MEDS: CRESTOR 5 MG PO (21:11)
[2025-01-03] VITALS (16 sets, daily range): BP systolic 110–154; BP diastolic 59–85; PULSE 76–137; O2SAT 98
[2025-01-03 01:09] LABS: Hematocrit 22.2 % (37.0-47.0); Hemoglobin 7.7 g/dL (12.0-16.0)
[2025-01-03] MEDS: SYNTHROID 150 MCG PO (04:53)
[2025-01-03] MEDS: D5LR 1000 IV (04:54)
[2025-01-03] MEDS: PROTONIX 100 IV (06:22)
[2025-01-03 09:13] LABS: % Basophils 0.8 % (0-2); % Immature Granulocytes 0.8 % (0-0.5); % Lymphocytes 27.7 % (20.5-51.1); % Monocytes 7.3 % (1.7-9.3); % Neutrophils 61.4 % (42.2-75.2); Absolute Basophils 0.1 10^3/uL (0-0.2); Absolute Eosinophils 0.2 10^3/uL (0-0.7); Absolute Immature Granulocytes 0.1 10^3/uL (0-0.05); Absolute Lymphocytes 2.9 10^3/uL (1.2-3.4); Absolute Monocytes 0.8 10^3/uL (0.1-0.6); Absolute Neutrophils 6.5 10^3/uL (1.4-6.5); Hematocrit 29.6 % (37.0-47.0); Hemoglobin 10.1 g/dL (12.0-16.0); Mean Corp Hgb Conc. 34.1 g/dL (33.0-37.0); Mean Corpuscular Hgb 30.4 pg (27.0-31.0); Mean Corpuscular Volume 89.2 fL (81.0-99.0); Mean Platelet Volume 10.6 fL (7.4-10.4); Nucleated Red Blood Cells % 0 %; Platelet Count 197 10^3/uL (130-400); Red Blood Cell Count 3.32 10^6/uL (4.20-5.40); Red Cell Dist. Width 15.2 % (11.5-14.5); White Blood Cell Count 10.6 10^3/uL (4.8-10.8)
--- NOTE | 2025-01-03 09:17 | W.PN.HOSP.TC ---
Today's Communication/Plan
-
PPI. Doppler right lower extremity. X-ray of the right knee
Assessment / Plan
Assessment / Plan
Physical exam:
General: Well Developed, Well Nourished and No Apparent Distress
HEENT: Normocephalic, Atraumatic and Moist Mucous Membranes
Respiratory: Clear to Auscultation; Negative Wheezes, Rales or Rhonchi
Cardiac: Regular Rhythm and S1/S2
GI: Soft, Nontender and Nondistended
Musculoskeletal: Postop right knee. Swelling and tenderness on the right leg. Some edema R>L. No Clubbing, No Cyanosis.
Neuro: Awake, Alert and Oriented
Psych: Calm
EGD:
- Small hiatal hernia.
- Low-grade of narrowing and non-obstructing Schatzki
ring.
- Normal stomach.
- Non-bleeding duodenal ulcers with no stigmata of
bleeding.
- Mucosal changes in the duodenum.
- No specimens collected.
A/P:
Acute GI bleed:
On Protonix drip--> changed to IV Protonix twice a day today and then switch to oral tomorrow
Continue monitoring hb
EGD today with results as above
Discussed with GI and will start pharmacological DVT prophylaxis but if VTE present will need to discuss with GI again.
GI has cleared her for discharge but she is not medically cleared yet.
Acute blood loss anemia:
Continue monitor hemoglobin
Transfusion as needed
Right knee pain and swelling in the setting of recent right total knee replacement:
Pain control without NSAIDs (discussed with patient)
Check x-ray of the right knee
Check Doppler of right lower extremity rule out DVT
Not cleared for discharge until above workup completed.
PT OT eval
Hypothyroidism:
Levothyroxine 150 mcg p.o. daily
Hypertension:
Continue metoprolol succinate 50 mg p.o. nightly
DVT prophylaxis:
SCDs for now
CODE STATUS:
Full code
Total time spent on today's encounter was 52 minutes which included time spent in counseling the patient/family regarding diagnosis and treatment plan as listed above, goals of care, and symptom management. Case was discussed with nursing staff,
specialists, and care coordinators/case management. All labs and imaging personally reviewed by me. Remainder the time spent in detailed review of previous records, lab data, imaging, and other medical provider documentation.
Anticipated Discharge: 24 - 48 hours
Subjective/Interval History
-
Date of Service: January 03, 2025
Patient denies any abdominal pain nausea or vomiting. No hematemesis or melena. Patient does complain of right knee pain and leg discomfort and swelling. Afebrile
Objective Data
-
Labs:
Laboratory Results
01/03/25 01/03/25 01/03/25
01:02 06:00 08:19
WBC Cancelled 10.6
Hgb 7.7 L Cancelled 10.1 L D
Hct 22.2 L Cancelled 29.6 L
Plt Count Cancelled 197
Vital Signs:
Vital Signs
Temp Pulse Resp BP Pulse Ox
98.1 F 76 18 134/72 98
01/03/25 07:36 01/03/25 07:36 01/03/25 07:36 01/03/25 07:36 01/03/25 07:36
I&O
01/02/25 01/03/25 01/04/25
06:59 06:59 06:59
Intake Total 980 / 980 2790 / 2790
Balance 980 / 980 2790 / 2790
[2025-01-03] MEDS: ULTRAM 25 MG PO ×2 (11:31→17:52)
[2025-01-03] MEDS: TYLENOL 650 MG PO (11:32)
[2025-01-03] MEDS: PROTONIX IV 40 MG IV (19:56)
[2025-01-03] MEDS: NSS (PRESERVATIVE FREE) 10 ML IV (19:57)
[2025-01-03] MEDS: CRESTOR 5 MG PO (21:52)
[2025-01-03] MEDS: TOPROL XL 50 MG PO (21:52)
[2025-01-04] MEDS: ULTRAM 25 MG PO (00:36)
[2025-01-04 02:54] VITALS: BP 122/61
[2025-01-04] MEDS: SYNTHROID 150 MCG PO (05:41)
[2025-01-04 07:28] VITALS: BP 123/63
[2025-01-04] MEDS: PROTONIX IV 40 MG IV (07:55)
[2025-01-04] MEDS: NSS (PRESERVATIVE FREE) 10 ML IV (07:56)
[2025-01-04 08:08] LABS: Hematocrit 23.4 % (37.0-47.0); Hemoglobin 7.9 g/dL (12.0-16.0); Mean Corp Hgb Conc. 33.8 g/dL (33.0-37.0); Mean Corpuscular Hgb 30.4 pg (27.0-31.0); Mean Platelet Volume 10.5 fL (7.4-10.4); Platelet Count 178 10^3/uL (130-400); Red Cell Dist. Width 15.7 % (11.5-14.5); White Blood Cell Count 8.1 10^3/uL (4.8-10.8)
[2025-01-04 08:18] LABS: Blood Urea Nitrogen 17 mg/dl (7-17); Calcium 8.1 mg/dl (8.4-10.2); Carbon Dioxide 28 mmol/L (22-30); Chloride 106 mmol/L (98-107); Estimated Creatinine Clearance 82 ml/min; Glucose 94 mg/dl (70-99); Potassium 4.3 mmol/L (3.5-5.1); Sodium 135 mmol/L (135-145); eGFR > 60.00
--- NOTE | 2025-01-04 08:48 | W.PN.HOSP.TC ---
Today's Communication/Plan
-
Discharge planning
Assessment / Plan
Assessment / Plan
Physical exam:
General: Well Developed, Well Nourished and No Apparent Distress
HEENT: Normocephalic, Atraumatic and Moist Mucous Membranes
Respiratory: Clear to Auscultation; Negative Wheezes, Rales or Rhonchi
Cardiac: Regular Rhythm and S1/S2
GI: Soft, Nontender and Nondistended
Musculoskeletal: Postop right knee. No Clubbing, No Cyanosis.
Neuro: Awake, Alert and Oriented
Psych: Calm
EGD:
- Small hiatal hernia.
- Low-grade of narrowing and non-obstructing Schatzki
ring.
- Normal stomach.
- Non-bleeding duodenal ulcers with no stigmata of
bleeding.
- Mucosal changes in the duodenum.
- No specimens collected.
A/P:
Acute GI bleed:
On Protonix drip--> changed to IV Protonix twice a day today and then switch to oral today
Continue monitoring hb
EGD today with results as above
Discussed with GI and can resume pharmacological DVT prophylaxis
Acute blood loss anemia:
Continue monitor hemoglobin
Hb down 7.9 but repeat stable at 9 today
Transfusion as needed
Right knee pain and swelling in the setting of recent right total knee replacement:
Pain control without NSAIDs (discussed with patient)
Check x-ray of the right knee and no issues
Check Doppler of right lower extremity rule out DVT and no issues
PT OT eval
Hypothyroidism:
Levothyroxine 150 mcg p.o. daily
Hypertension:
Continue metoprolol succinate 50 mg p.o. nightly
DVT prophylaxis:
SCDs for now
CODE STATUS:
Full code
Anticipated Discharge: Today
Subjective/Interval History
-
Date of Service: January 04, 2025
right knee pain much better today. No n/v/abd pain
Objective Data
-
Labs:
Laboratory Results
01/04/25
06:14
WBC 8.1
Hgb 7.9 L D
Hct 23.4 L
Plt Count 178
Sodium 135
Potassium 4.3
Chloride 106
Carbon Dioxide 28
BUN 17
Creatinine 0.7
Glucose 94
Calcium 8.1 L
Vital Signs:
Vital Signs
Temp Pulse Resp BP Pulse Ox
98.6 F 78 20 123/63 98
01/04/25 07:28 01/04/25 07:28 01/04/25 07:28 01/04/25 07:28 01/04/25 07:28
I&O
01/03/25 01/04/25 01/05/25
06:59 06:59 06:59
Intake Total 2790 / 2790 480 / 480
Balance 2790 / 2790 480 / 480
[2025-01-04 09:15] LABS: Hematocrit 26.3 % (37.0-47.0)
[2025-01-04 11:04] VITALS: BP 131/64
--- NOTE | 2025-01-04 12:34 | W.DCSUMMARY ---
Discharge Summary
Discharge Data
Date of Admission: 12/31/24
Date of Discharge: 01/04/25
-
Pending Results: No
Hospital Course
Patient is 69 years old female history of DJD, hypothyroidism, hyperlipidemia, recent right knee replacement came into the hospital with abdominal pain and melena and anemia. Patient was found to be in acute GI bleed. She was started on Protonix.
She also was transfused with 1 unit of blood. GI was consulted. Aspirin and NSAIDs were held. Patient underwent upper endoscopy and found to have Schatzki ring and nonbleeding duodenal ulcers. She was kept on PPI. She tolerated diet well.
Although GI recommended to avoid NSAIDs they are okay with her finishing her DVT prophylaxis doses of aspirin due to recent right knee surgery. Patient had some pain on her knee and she was evaluated with x-rays and Dopplers that were unremarkable
and physical therapy saw her throughout this hospital stay and recommended continue outpatient therapy. Patient feels back to her normal today. Her hemoglobin had a slight drop but we repeated again and hemoglobin has remained stable. Patient has
been cleared by GI. Patient will be discharged in stable condition today.
Discharge duration: 36 minutes
Discharge Plan
-
Patient Disposition: Home (Routine Discharge)
Discharge Diagnosis/Procedures: Acute gastrointestinal bleed. Duodenal ulcers. Acute blood loss anemia. Recent right total knee replacement.
Diet: Low Cholesterol
Activity: As tolerated
Blood Work: Please PCP to order CBC, BMP within 1 week
Referrals:
Inez Levine PA-C [Family Provider] - in less than 1 week
Sunshine Malik DO [Active] - in three to four weeks
Prescriptions:
New
tramadol 50 mg Tablet
25 mg PO Q6HPRN PRN (Reason: moderate pain) Qty: 0 0RF
pantoprazole [Protonix] 40 mg tablet,delayed release (DR/EC)
40 mg PO BID Qty: 60 0RF
Continued
aspirin 325 mg Tablet
325 mg PO DAILY
metoprolol succinate 100 mg Tablet Extended Release 24 Hr
200 mg PO HS
lorazepam 0.5 mg Tablet
0.25 mg PO HSPRN PRN (Reason: sleep/anxiety)
levothyroxine 150 mcg Tablet
150 mcg PO DAILY@06
lisinopril 5 mg Tablet
5 mg PO DAILY
rosuvastatin 5 mg Tablet
5 mg PO HS
Discontinued
ibuprofen [Advil] 200 mg Tablet
400 mg PO Q6HPRN PRN (Reason: mild pain)
methylprednisolone 4 mg Tablets,Dose Pack
0 mg PO PER PKG DIR
Patient Comments:
12/31/24: Patient is on day 4
Discharge Orders:
Discharge Patient (As Directed); Ordered 01/04/25
Ordered By: Aman Bello
Discharge Date and Time
Discharge Date/Time: 01/04/25 15:21
Print Language: ANGOLAN
--- NOTE | 2025-01-04 12:56 | CM ---
CM reviewed chart, patient seen in chair, for discharge today. Patient declines need for VN. Patient confirms she has transportation home. IMM reviewed, signed, placed in chart, patient provided with copy. CM will continue to follow for all
discharge planning needs.
Plan; home no needs.
[2025-01-04 14:34] VITALS: BP 157/69
== END 2025-01-04 15:21 | disposition home or self-care (01) | DRG 378 ==
LOC: 4 WEST ACU 18:38
PROVIDERS: Emergency Medicine; Registered Nurse; ADMITTING PHYSICIAN Internal Medicine; ATTENDING PHYSICIAN Hospitalist; CONSULT PHYSICIAN Internal Medicine; EMERGENCY PHYSICIAN Emergency Medicine; FAMILY PHYSICIAN Student in an Organized Health Care Education/Training Program
PROC: 30233N1 Transfusion of Nonautologous Red Blood Cells into Peripheral Vein, Percutaneous Approach (ICD-10-PCS; 2025-01-01)
PROC: 0DJ08ZZ Inspection of Upper Intestinal Tract, Via Natural or Artificial Opening Endoscopic (ICD-10-PCS; 2025-01-03)
DX: K26.4 Chronic or unspecified duodenal ulcer with hemorrhage (principal); D62 Acute posthemorrhagic anemia; I10 Essential (primary) hypertension; T39.395A Adverse effect of other nonsteroidal anti-inflammatory drugs [NSAID], initial encounter; E89.0 Postprocedural hypothyroidism; E78.00 Pure hypercholesterolemia, unspecified; E78.49 Other hyperlipidemia; K44.9 Diaphragmatic hernia without obstruction or gangrene; K22.2 Esophageal obstruction; K31.89 Other diseases of stomach and duodenum; D72.829 Elevated white blood cell count, unspecified; G89.18 Other acute postprocedural pain; M25.561 Pain in right knee; Z96.651 Presence of right artificial knee joint; Z11.52 Encounter for screening for COVID-19
CPT/HCPCS: 71045; 73560; 80048; 80053; 81003; 82607; 82728; 83540; 83550; 83690; 85014; 85018; 85025; 85027; 85610; 85730; 86850; 86900; 86901; 86920; 87502; 87811; 93971; 96365; 96366; 97110; 97163; 99284; P9016

== ENCOUNTER 2025-03-03 06:29 | Day surgery (SDC) | payer MEDICARE, OTHER, SELFPAY | END 2025-03-03 15:05 | disposition home or self-care (01) | LOC: GI 06:29 | PROVIDERS: ATTENDING PHYSICIAN Internal Medicine | DX: K26.3 Acute duodenal ulcer without hemorrhage or perforation (principal); K44.9 Diaphragmatic hernia without obstruction or gangrene; K22.2 Esophageal obstruction; K31.89 Other diseases of stomach and duodenum; Z87.11 Personal history of peptic ulcer disease | CPT/HCPCS: 43235 ==